=== PATIENT | female | born 1965 | race Caucasian/White ===

== ENCOUNTER 2016-11-19 08:08 | Day surgery (SDC) | payer BC ==
[2016-11-19] MEDS ORDERED: PROPOFOL 500 MG/50 ML EMU IV ONE (08:09)
[2016-11-19] MEDS ORDERED: LIDOCAINE HCL 1% MPF SOL ONE (08:09)
[2016-11-19 09:05] VITALS: TEMP 97.6
[2016-11-19 09:20] VITALS: BP 112/78; PULSE 62; RESP 18; O2SAT 97
== END 2016-11-19 09:35 | disposition home or self-care (01) ==
LOC: SURG 08:08
PROVIDERS: ATTEND Surgery
DX: Z12.11 Encounter for screening for malignant neoplasm of colon (principal)
CPT/HCPCS: J2001; J2704